=== PATIENT | male | born 1940 | race Caucasian/White ===

== ENCOUNTER 2019-03-12 10:14 | Observation (INO) | payer MEDICARE, OTHER ==
[~2019-03-12] VITALS: Ht 170.2 cm; Wt 71.6 kg
[2019-03-12] MEDS ORDERED: RANI1TAB38 PO (10:30)
[2019-03-12] MEDS ORDERED: SIMV10TA2 PO (10:30)
[2019-03-12] MEDS ORDERED: AMLO10TA PO (10:30)
[2019-03-12] MEDS ORDERED: PLAV1TAB2 PO (10:30)
[2019-03-12] MEDS ORDERED: ASPI81TA85 PO (10:30)
[2019-03-12] MEDS ORDERED: PROS5TAB PO (10:30)
[2019-03-12] MEDS ORDERED: METO200T28 PO (10:30)
[2019-03-12] MEDS ORDERED: VITAD1000T PO (10:30)
[2019-03-12] MEDS ORDERED: LISI40TA PO (10:30)
[2019-03-12 10:52] LABS: BASO % 0.5 % (0.0-1.0); EOS % 0.3 % (0.0-3.0); HEMATOCRIT 44.2 % (42.0-52.0); HEMOGLOBIN 15.4 g/dl (13.5-17.5); LYMPH # 0.7 10^3/uL (1.5-4.5); LYMPH % 9.3 % (24.0-44.0); MEAN CORPUSCULAR HGB CONC 34.8 g/dl (32.0-36.5); MEAN CORPUSCULAR VOLUME 91.9 fl (80.0-96.0); MONO # 0.9 10^3/uL (0.0-0.8); MONO % 11.1 % (0.0-5.0); NEUTROPHILS # 6.2 10^3/uL (1.8-7.7); PLATELET COUNT, AUTOMATED 184 10^3/uL (150-450); RED BLOOD COUNT 4.81 10^6/uL (4.30-6.10)
[2019-03-12 11:02] LABS: INR 1.11
[2019-03-12 11:03] LABS: PARTIAL THROMBOPLASTIN TIME 27.3 SECONDS (25.0-38.4)
[2019-03-12 11:27] LABS: ALBUMIN 4.2 GM/DL (3.2-5.2); ALT/SGPT 23 U/L (12-78); BILIRUBIN,DIRECT 0.2 MG/DL (0.0-0.2); BILIRUBIN,TOTAL 0.9 MG/DL (0.2-1.0); BLOOD UREA NITROGEN 18 MG/DL (7-18); CALCIUM LEVEL 8.9 MG/DL (8.8-10.2); CARBON DIOXIDE LEVEL 26 MEQ/L (21-32); CHLORIDE LEVEL 102 MEQ/L (98-107); CK-MB VALUE MASS 1.5 NG/ML (<3.6); CPK CREATINE PHOSPHOKINASE 123 U/L (39-308); CREATININE FOR GFR 1.06 MG/DL (0.70-1.30); FREE T4 1.38 NG/DL (0.76-1.46); GLOMERULAR FILTRATION RATE > 60.0 (>35); GLUCOSE, FASTING 165 MG/DL (70-100); MB/CK RELATIVE INDEX 1.22 (< OR =4); POTASSIUM SERUM 4.3 MEQ/L (3.5-5.1); SODIUM LEVEL 134 MEQ/L (136-145); TOTAL PROTEIN 7.2 GM/DL (6.4-8.2); TROPONIN I < 0.02 NG/ML (< 0.10)
--- NOTE | 2019-03-12 11:42 | REP ---
PA and lateral chest: There are no comparisons. The lung wilson are clear. The cardiac size is normal. The luis, mediastinum, and skeletal structures are unremarkable. Impression: Negative PA and lateral chest. Electronically Signed by Sylvester Shipman MD 03/12/2019 11:34 A
--- NOTE | 2019-03-12 12:01 | REP ---
CT of the brain without IV contrast: There are no comparisons. There is no hemorrhage, edema, mass effect or midline shift. The cortical stripe is unremarkable. The sulci are mildly enlarged compatible with mild diffuse volume loss. The visualized paranasal sinuses and mastoid air cells are clear. Impression: There is no hemorrhage, acute infarct or mass. Mild diffuse volume loss. Electronically Signed by Sylvester Shipman MD 03/12/2019 11:52 A
[2019-03-12] MEDS: NS 1,000 ML IV SCH ×2 (12:12→18:01)
[2019-03-12] MEDS ORDERED: REFR0.5D8 OU (12:55)
[2019-03-12] MEDS ORDERED: METO1TAB32 PO (12:55)
[2019-03-12] MEDS ORDERED: NITR0.1S SL (12:55)
[2019-03-12] MEDS ORDERED: AMLO5TAB6 PO (12:55)
[2019-03-12] MEDS ORDERED: ACETAMINOPHEN TAB 650MG DOSE (2X325MG) PO PRN (13:15)
[2019-03-12] MEDS ORDERED: MAALOX 30 ML SUSP *UDC PO PRN (13:15)
[2019-03-12] MEDS ORDERED: MOM 30ML SUSPENSION UDC PO PRN (13:15)
--- NOTE | 2019-03-12 13:49 | HPEPDOC ---
General Date of Admission Mar 12, 2019 at 13:04 Date of Service: Mar 12, 2019 Attending Physician: ZANE MINER MD Chief Complaint The patient is a 79-year-old male admitted with a reason for visit of Syncope. Source: Patient, Family Timing/Duration: 1/2-1 hour Severity: Other (N/A) Associated Symptoms: Other (aura) History of Present Illness 79 years old white male with past medical history of coronary artery disease status post coronary stent was in usual state of health. He was at his faith while trying to sit down from a standing position he had a normal followed by syncopal episode with loss of consciousness for 10-15 seconds. Patient was awake, alert and oriented 3 when he recovered. . No chest pain, no shortness of breath, no nausea, vomiting, no headache Home Medications Scheduled Amlodipine Besylate (Amlodipine Besylate) 5 Mg Tablet, 5 MG PO DAILY, (Reported) Aspirin (Aspir 81) 81 Mg Tablet.dr, 81 MG PO DAILY, (Reported) Clopidogrel Bisulfate (Plavix) 75 Mg Tablet, 75 MG PO DAILY, (Reported) Finasteride (Proscar) 5 Mg Tablet, 5 MG PO DAILY, (Reported) Lisinopril (Lisinopril) 40 Mg Tablet, 40 MG PO DAILY, (Reported) Metoprolol Succinate (Metoprolol Succinate) 25 Mg Tab.er.24h, 25 MG PO QHS, (Reported) Ranitidine Hcl (Ranitidine HCl) 150 Mg Tablet, 1 TAB PO BID, (Reported) Simvastatin (Simvastatin) 10 Mg Tablet, 10 MG PO QHS, (Reported) Vitamin D (Vitamin D3) 1,000 Unit Tablet, 1,000 UNIT PO DAILY, (Reported) Scheduled PRN Carboxymethylcellulose Sodium (Refresh Tears) 15 Ml Drops, 1 DROP OU QID PRN for DRY EYES, (Reported) Nitroglycerin (Nitroglycerin) 4.9 Gm [place], 0.4 MG SL for CHEST PAIN, (Reported) Allergies Coded Allergies: citalopram (Verified Adverse Reaction, Mild, nausea, 03/12/19) metformin (Verified Adverse Reaction, Mild, nausea, 03/12/19) Past Medical History Medical History CAD, hyperlipidemia, cataracts, hypertension Surgical History Bilateral cataract surgery, skin mole removal surgery Family History Significant Family History: No pertinent family hx Social History * Smoker: Denies Alcohol: Denies Drugs: denies A-FIB/CHADSVASC A-FIB History Current/History of A-Fib/PAF?: No Review of Systems Constitutional: Denies: Chills, Fever, Malaise, Night Sweats, Weakness, Fatigue, Weight Loss, Lethargy, Other Eyes: Denies: Pain, Vision change, Conjunctivae inflammation, Eyelid inflammation, Redness, Other ENT: Denies: Head Aches, Ear Pain, Dysphagia, Sinus Congestion, Post Nasal Drip, Sore Throat, Epistaxis, Other Symptoms Skin: Denies: Rash, Lesions, Jaundice, Bruising, Itching, Dry, Breakdown, Nail Changes, Other Pulmonary: Denies: Dyspnea, Cough, Pleuritic Chest Pain, Other Symptoms Cardiovascular: Denies: Chest Pain, Palpitations, Orthopnea, Paroxysmal Noc. Dyspnea, Edema, Lt Headedness, Other Symptoms Gastrointestinal: Denies: Nausea, Vomiting, Abdominal Pain, Diarrhea, Constipation, Melena, Hematochezia, Other Symptoms Genitourinary: Denies: Dysuria, Frequency, Incontinence, Hematuria, Retention, Other Symptoms Hematologic: Denies: Bruising, Bleeding Excessively, Petecchia, Purpura, Enlarged Lymph Nodes, Other Hematologic Endocrine: Denies: Polydipsia, Polyphagia, Polyuria, Heat Intolerance, Cold Intolerance, Other Endocrine Sx Musculoskeletal: Denies: Neck Pain, Back Pain, Shoulder Pain, Arm Pain, Hand Pain, Leg Pain, Foot Pain, Joint Pain, Muscle Pain, Spasms, Other Symptoms Neurological: Reports: Other Symptoms (syncope with loss of consciousness for 10-15 seconds) Psych: Denies: Mood Normal, Anxiety, Depression, Memory Issues, Thoughts of Self Harm, Anger, Thoughts of Harming Other, Other Psych Physical Examination General Exam: Positive: Alert Eye Exam: Positive: PERRLA, Conjunctiva & lids normal ENT Exam: Positive: Atraumatic Neck Exam: Positive: Supple Chest Exam: Positive: Clear to auscultation, Normal air movement Heart Exam: Positive: Rate Normal, Normal S1, Normal S2 Abdomen Exam: Positive: Normal bowel sounds, Soft Extremity Exam: Positive: Normal pulses Skin Exam: Positive: Nl turgor and temperature Neuro Exam: Positive: Normal Gait, Normal Speech, Cranial Nerves 3-12 NL Psych Exam: Positive: Mental status NL, Mood NL, Oriented x 3 Vital Signs Vital Signs Date Time Temp Pulse Resp B/P (MAP) Pulse Ox O2 Delivery O2 Flow Rate FiO2 03/12/19 12:45 85 16 164/79 (107) 97 03/12/19 10:29 97.7 Room Air Laboratory Data Labs 24H Laboratory Tests 2 03/12/19 10:44: Immature Granulocyte % (Auto) 0.8, White Blood Count 8.0, Red Blood Count 4.81, Hemoglobin 15.4, Hematocrit 44.2, Mean Corpuscular Volume 91.9, Mean Corpuscular Hemoglobin 32.0, Mean Corpuscular Hemoglobin Concent 34.8, Red Cell Distribution Width 13.1, Platelet Count 184, Neutrophils (%) (Auto) 78.0H, Lymphocytes (%) (Auto) 9.3L, Monocytes (%) (Auto) 11.1H, Eosinophils (%) (Auto) 0.3, Basophils (%) (Auto) 0.5, Neutrophils # (Auto) 6.2, Lymphocytes # (Auto) 0.7L, Monocytes # (Auto) 0.9H, Eosinophils # (Auto) 0.0, Basophils # (Auto) 0.0, Nucleated Red Blood Cells % (auto) 0.0, Prothrombin Time 14.0, Prothromb Time International Ratio 1.11, Activated Partial Thromboplast Time 27.3, Anion Gap 6L, Glomerular Filtration Rate > 60.0, Calcium Level 8.9, Aspartate Amino Transf (AST/SGOT) 19, Alanine Aminotransferase (ALT/SGPT) 23, Alkaline Phosphatase 86, Total Bilirubin 0.9, Direct Bilirubin 0.2, Total Creatine Kinase 123, Creatine Kinase MB 1.5, Creatine Kinase MB Relative Index 1.22, Troponin I < 0.02, Total Protein 7.2, Albumin 4.2, Albumin/Globulin Ratio 1.40, Thyroid Stimulating Hormone (TSH) 1.220, Free Thyroxine 1.38 CBC/BMP Laboratory Tests 03/12/19 10:44 Red Blood Count 4.81, Mean Corpuscular Volume 91.9, Mean Corpuscular Hemoglobin 32.0, Mean Corpuscular Hemoglobin Concent 34.8, Red Cell Distribution Width 13.1, Neutrophils (%) (Auto) 78.0 H, Lymphocytes (%) (Auto) 9.3 L, Monocytes (%) (Auto) 11.1 H, Eosinophils (%) (Auto) 0.3, Basophils (%) (Auto) 0.5, Neutrophils # (Auto) 6.2, Lymphocytes # (Auto) 0.7 L, Monocytes # (Auto) 0.9 H, Eosinophils # (Auto) 0.0, Basophils # (Auto) 0.0 Problems (1) Syncope Status: Acute Problem Text: Syncope most likely vasovagal in nature CT head is negative for any ischemia or hemorrhage All the level work is essentially within normal range including first troponin is negative Will request bilateral carotid Dopplers and echocardiogram for completion of workup Continue home medications including aspirin and Plavix DVT prophylaxis with heparin Diet 2 g sodium Activity as tolerated Possible discharge in a.m. once once the workup is complete Plan / VTE VTE Prophylaxis Ordered?: Yes ZANE MINER MD Mar 12, 2019 13:49
[2019-03-12 14:10] VITALS: BP 150/78
[2019-03-12 18:00] VITALS: BP 168/74
[2019-03-12] MEDS: HEPARIN SOD (PORCINE) 5000 UNITS/ML VIAL SC SCH (21:00)
[2019-03-12] MEDS ORDERED: METOPROLOL SUCC *XL* 25MG TAB (TopROL *XL*) PO SCH (21:00)
[2019-03-12] MEDS: DOCUSATE SODIUM 100 MG CAP PO SCH (21:00)
[2019-03-12] MEDS ORDERED: SIMVASTATIN 10 MG TAB PO SCH (21:00)
[2019-03-12] MEDS: FAMOTIDINE 20 MG TAB PO SCH (21:18)
[2019-03-12 22:00] VITALS: BP 160/76
[2019-03-13] MEDS: NS 1,000 ML IV SCH ×2 (00:53→07:22)
[2019-03-13 06:00] VITALS: BP 161/79
[2019-03-13 06:40] LABS: HEMATOCRIT 43.5 % (42.0-52.0); HEMOGLOBIN 14.8 g/dl (13.5-17.5); MEAN CORPUSCULAR HEMOGLOBIN 31.1 pg (27.0-33.0); MEAN CORPUSCULAR VOLUME 91.4 fl (80.0-96.0); PLATELET COUNT, AUTOMATED 191 10^3/uL (150-450); RED BLOOD COUNT 4.76 10^6/uL (4.30-6.10); WHITE BLOOD COUNT 7.2 10^3/uL (4.0-10.0)
--- NOTE | 2019-03-13 06:54 | ECGEPIP ---
[facility] - ED Test Date: 2019-03-12 Pat Name: JEN AIKEN Department: Room: [place] [address] Gender: Male Cloud Security Architect: alma : [id number] Requested By: LINDA Hurst Order Number: [id number] Reading MD: Mikey Mason Measurements Intervals [place] Rate: 70 P: 28 [place]: 202 QRS: 36 QRSD: 90 T: 73 QT: 389 QTc: 421 Interpretive Statements SINUS RHYTHM POOR R WAVE PROGRESSION NO PRIORS FOR COMPARISON Electronically Signed on 03-13-2019 6:54:50 EDT by Mikey Mason
[2019-03-13 07:10] LABS: ALBUMIN 3.6 GM/DL (3.2-5.2); ALT/SGPT 21 U/L (12-78); BILIRUBIN,TOTAL 0.8 MG/DL (0.2-1.0); BLOOD UREA NITROGEN 11 MG/DL (7-18); CALCIUM LEVEL 8.6 MG/DL (8.8-10.2); CARBON DIOXIDE LEVEL 25 MEQ/L (21-32); CHLORIDE LEVEL 107 MEQ/L (98-107); CREATININE FOR GFR 0.79 MG/DL (0.70-1.30); GLOMERULAR FILTRATION RATE > 60.0 (>35); GLUCOSE, FASTING 121 MG/DL (70-100); MAGNESIUM LEVEL 2.1 MG/DL (1.8-2.4); POTASSIUM SERUM 3.5 MEQ/L (3.5-5.1); SODIUM LEVEL 138 MEQ/L (136-145); TOTAL PROTEIN 6.8 GM/DL (6.4-8.2)
--- NOTE | 2019-03-13 07:18 | REP ---
Bilateral carotid artery duplex ultrasound: Peak flow velocity analysis: RIGHT LEFT ICA Peak flow velocity cm/sec 79.1 64.1 ICA Diastolic flow velocity cm/sec 15.0 16.2 ICA/CCA Ratio 0.8 0.7 ECA Peak flow velocity cm/sec 104.0 100.9 CCA Peak flow velocity cm/sec 97.6 96.8 There is minimal atheromatous plaque bilaterally. The peak flow velocities are normal bilaterally. The findings indicate less than 50% narrowing bilaterally. There is no significant stenosis on the right on the left. There is antegrade flow in the vertebral arteries bilaterally. Electronically Signed by Sylvester Shipman MD 03/13/2019 07:10 A
[2019-03-13] MEDS ORDERED: VITAMIN D 1,000 INTERNATIONAL UNITS TABLET PO SCH (09:00)
[2019-03-13] MEDS ORDERED: amLODIPine 5 MG TAB PO SCH (09:00)
[2019-03-13] MEDS ORDERED: ASPIRIN 81 MG ENTERIC TAB PO SCH (09:00)
[2019-03-13] MEDS ORDERED: CLOPIDOGREL 75 MG TAB PO SCH (09:00)
[2019-03-13] MEDS ORDERED: LISINOPRIL 40 MG TAB PO SCH (09:00)
[2019-03-13] MEDS ORDERED: FINASTERIDE 5 MG TAB PO SCH (09:00)
[2019-03-13] MEDS: HEPARIN SOD (PORCINE) 5000 UNITS/ML VIAL SC SCH (09:42)
[2019-03-13] MEDS: FAMOTIDINE 20 MG TAB PO SCH (09:42)
[2019-03-13 09:43] VITALS: BP 149/75
[2019-03-13] MEDS: DOCUSATE SODIUM 100 MG CAP PO SCH (09:43)
--- NOTE | 2019-03-13 11:51 | IPNPDOC ---
Subjective Date Seen The patient was seen on 03/13/19. Subjective Chief Complaint/HPI Patient with no other symptoms, no syncope, no dizziness General: Denies: ROS Unobtainable, Chills, Night Sweats, Fatigue, Malaise, Normal Appetite, Other Symptoms Constitutional: Denies: Chills, Fever, Malaise, Night Sweats, Weakness, Fatigue, Weight Loss, Lethargy, Other Eyes: Denies: Pain, Vision change, Conjunctivae inflammation, Eyelid inflammation, Redness, Other ENT: Denies: Head Aches, Ear Pain, Dysphagia, Sinus Congestion, Post Nasal Drip, Sore Throat, Epistaxis, Other Symptoms Skin: Denies: Rash, Lesions, Jaundice, Bruising, Itching, Dry, Breakdown, Nail Changes, Other Pulmonary: Denies: Dyspnea, Cough, Pleuritic Chest Pain, Other Symptoms Cardiovascular: Denies: Chest Pain, Palpitations, Orthopnea, Paroxysmal Noc. Dyspnea, Edema, Lt Headedness, Other Symptoms Gastrointestinal: Denies: Nausea, Vomiting, Abdominal Pain, Diarrhea, Constipation, Melena, Hematochezia, Other Symptoms Musculoskeletal: Denies: Neck Pain, Back Pain, Shoulder Pain, Arm Pain, Hand Pain, Leg Pain, Foot Pain, Joint Pain, Muscle Pain, Spasms, Other Symptoms Neurological: Denies: Weakness, Numbness, Incoordination, Change in speech, Confusion, Seizures, Other Symptoms Psych: Denies: Mood Normal, Anxiety, Depression, Memory Issues, Thoughts of Self Harm, Anger, Thoughts of Harming Other, Other Psych Objective Physical Examination General Exam: Positive: Alert Eye Exam: Positive: PERRLA, Conjunctiva & lids normal ENT Exam: Positive: Atraumatic Neck Exam: Positive: Supple Chest Exam: Positive: Clear to auscultation, Normal air movement Heart Exam: Positive: Rate Normal, Normal S1, Normal S2 Abdomen Exam: Positive: Normal bowel sounds, Soft Extremity Exam: Positive: Normal pulses Skin Exam: Positive: Nl turgor and temperature Neuro Exam: Positive: Normal Gait, Normal Speech, Cranial Nerves 3-12 NL Psych Exam: Positive: Mental status NL, Mood NL, Oriented x 3 Assessment /Plan Problems (1) Syncope Status: Acute Problem Text: Syncope most likely vasovagal in nature CT head is negative for any ischemia or hemorrhage All workup including 3 troponins are negative Continue home medications including aspirin and Plavix DVT prophylaxis with heparin Diet 2 g sodium Activity as tolerated Carotid Dopplers do not show any obstruction Echocardiogram is pending DC patient. If echo is normal Plan/VTE VTE Prophylaxis Ordered?: Yes VS, I&O, 24H, Fishbone Vital Signs/I&O Vital Signs Date Time Temp Pulse Resp B/P (MAP) Pulse Ox O2 Delivery O2 Flow Rate FiO2 03/13/19 09:43 87 149/75 03/13/19 06:00 98.4 18 94 03/12/19 10:29 Room Air I&O- Last 24 Hours up to 6 AM 03/13/19 06:00 Intake Total 1950 ml Output Total 500 ml Balance 1450 ml Laboratory Data 24H LABS Laboratory Tests 2 03/12/19 18:24: Troponin I < 0.02 03/12/19 22:39: Troponin I < 0.02 03/13/19 05:38: Nucleated Red Blood Cells % (auto) 0.0, Anion Gap 6L, Glomerular Filtration Rate > 60.0, Blood Urea Nitrogen 11, Creatinine 0.79, Sodium Level 138, Potassium Level 3.5, Chloride Level 107, Carbon Dioxide Level 25, Calcium Level 8.6L, Aspartate Amino Transf (AST/SGOT) 16, Alanine Aminotransferase (ALT/SGPT) 21, Alkaline Phosphatase 83, Total Bilirubin 0.8, Total Protein 6.8, Albumin 3.6, Magnesium Level 2.1, Albumin/Globulin Ratio 1.13 CBC/BMP Laboratory Tests 03/13/19 05:38 Red Blood Count 4.76, Mean Corpuscular Volume 91.4, Mean Corpuscular Hemoglobin 31.1, Mean Corpuscular Hemoglobin Concent 34.0, Red Cell Distribution Width 13.0, Calcium Level 8.6 L, Aspartate Amino Transf (AST/SGOT) 16, Alanine Aminotransferase (ALT/SGPT) 21, Alkaline Phosphatase 83, Total Bilirubin 0.8, Total Protein 6.8, Albumin 3.6 ZANE MINER MD Mar 13, 2019 11:51
[2019-03-13 14:00] VITALS: BP 152/54
--- NOTE | 2019-03-13 16:27 | DS.PDOC ---
Discharge Summary General Date of Admission Mar 12, 2019 at 13:04 Date of Discharge 03/13/2019 Attending Physician: ZANE MINER MD Discharge Summary PROCEDURES PERFORMED DURING STAY: None. ADMITTING DIAGNOSES: 1. Syncope. DISCHARGE DIAGNOSES: 1. Vasovagal syncope. COMPLICATIONS/CHIEF COMPLAINT: Syncope. HISTORY OF PRESENT ILLNESS: 79 years old white male with past medical history of coronary artery disease status post coronary stent was in usual state of health. He was at his adventism while trying to sit down from a standing position he had a normal followed by syncopal episode with loss of consciousness for 10-15 seconds. Patient was awake, alert and oriented 3 when he recovered. . No chest pain, no shortness of breath, no nausea, vomiting, no headache. HOSPITAL COURSE: Patient was admitted for observation, patient's troponins 3 were negative, did not show any arrhythmias on the chief i dispatcher. CT of the head was essentially negative. Bilateral carotid Dopplers did not show any obstruction or lesions. More than 50%. Patient is a co-is also been done but report is pending. Patient does not wish to wait. He'll be discharged home as he is asymptomatic and he can call me tomorrow for his echocardiogram report.. DISCHARGE MEDICATIONS: Please see below. ALLERGIES: Please see below. PHYSICAL EXAMINATION ON DISCHARGE: VITAL SIGNS: Please see below. GENERAL: Within normal limits HEENT: PERRLA NECK: Supple CARDIOVASCULAR EXAMINATION:. S1, S2, regular, no murmur or thrill RESPIRATORY EXAMINATION: Clear to A&P ABDOMINAL EXAMINATION:. Soft, nontender, bowel sounds present EXTREMITIES:. No clubbing, cyanosis, edema SKIN: Within normal limits NEUROLOGICAL EXAMINATION: Within normal limits PSYCHIATRIC EXAMINATION: Normal LABORATORY DATA: Please see below. IMAGING: Bilateral carotid artery duplex ultrasound: Peak flow velocity analysis: RIGHT LEFT ICA Peak flow velocity cm/sec 79.1 64.1 ICA Diastolic flow velocity cm/sec 15.0 16.2 ICA/CCA Ratio 0.8 0.7 ECA Peak flow velocity cm/sec 104.0 100.9 CCA Peak flow velocity cm/sec 97.6 96.8 There is minimal atheromatous plaque bilaterally. The peak flow velocities are normal bilaterally. The findings indicate less than 50% narrowing bilaterally. There is no significant stenosis on the right on the left. There is antegrade flow in the vertebral arteries bilaterally. PROGNOSIS: Good ACTIVITY: As tolerated. DIET: Regular DISCHARGE PLAN: Follow with PCP in one week DISPOSITION: . Home DISCHARGE INSTRUCTIONS: 1. Follow-up with PCP in one week and call me in a.m. for the echocardiogram report. ITEMS TO FOLLOWUP ON ON OUTPATIENT: 1. Echocardiogram report. DISCHARGE CONDITION: Stable. TIME SPENT ON DISCHARGE: 35 minutes. Vital Signs/I&Os Vital Signs Date Time Temp Pulse Resp B/P (MAP) Pulse Ox O2 Delivery O2 Flow Rate FiO2 03/13/19 14:00 98.6 86 19 152/54 (86) 95 03/12/19 10:29 Room Air I&O- Last 24 Hours up to 6 AM 03/13/19 06:00 Intake Total 1950 ml Output Total 500 ml Balance 1450 ml Laboratory Data Labs 24H Laboratory Tests 2 03/12/19 18:24: Troponin I < 0.02 03/12/19 22:39: Troponin I < 0.02 03/13/19 05:38: Nucleated Red Blood Cells % (auto) 0.0, Anion Gap 6L, Glomerular Filtration Rate > 60.0, Blood Urea Nitrogen 11, Creatinine 0.79, Sodium Level 138, Potassium Level 3.5, Chloride Level 107, Carbon Dioxide Level 25, Calcium Level 8.6L, Aspartate Amino Transf (AST/SGOT) 16, Alanine Aminotransferase (ALT/SGPT) 21, Alkaline Phosphatase 83, Total Bilirubin 0.8, Total Protein 6.8, Albumin 3.6, Magnesium Level 2.1, Albumin/Globulin Ratio 1.13 CBC/BMP Laboratory Tests 03/13/19 05:38 Red Blood Count 4.76, Mean Corpuscular Volume 91.4, Mean Corpuscular Hemoglobin 31.1, Mean Corpuscular Hemoglobin Concent 34.0, Red Cell Distribution Width 13.0, Calcium Level 8.6 L, Aspartate Amino Transf (AST/SGOT) 16, Alanine Aminotransferase (ALT/SGPT) 21, Alkaline Phosphatase 83, Total Bilirubin 0.8, Total Protein 6.8, Albumin 3.6 Discharge Medications Scheduled Amlodipine Besylate (Amlodipine Besylate) 5 Mg Tablet, 5 MG PO DAILY, (Reported) Aspirin (Aspir 81) 81 Mg Tablet.dr, 81 MG PO DAILY, (Reported) Clopidogrel Bisulfate (Plavix) 75 Mg Tablet, 75 MG PO DAILY, (Reported) Finasteride (Proscar) 5 Mg Tablet, 5 MG PO DAILY, (Reported) Lisinopril (Lisinopril) 40 Mg Tablet, 40 MG PO DAILY, (Reported) Metoprolol Succinate (Metoprolol Succinate) 25 Mg Tab.er.24h, 25 MG PO QHS, (Reported) Ranitidine Hcl (Ranitidine HCl) 150 Mg Tablet, 1 TAB PO BID, (Reported) Simvastatin (Simvastatin) 10 Mg Tablet, 10 MG PO QHS, (Reported) Vitamin D (Vitamin D3) 1,000 Unit Tablet, 1,000 UNIT PO DAILY, (Reported) Scheduled PRN Carboxymethylcellulose Sodium (Refresh Tears) 15 Ml Drops, 1 DROP OU QID PRN for DRY EYES, (Reported) Nitroglycerin (Nitroglycerin) 4.9 Gm [place], 0.4 MG SL for CHEST PAIN, (Reported) Allergies Coded Allergies: citalopram (Verified Adverse Reaction, Mild, nausea, 03/12/19) metformin (Verified Adverse Reaction, Mild, nausea, 03/12/19) ZANE MINER MD Mar 13, 2019 16:27
--- NOTE | 2019-03-13 21:30 | ECHO ---
DATE OF PROCEDURE: 03/13/2019 REFERRING PHYSICIAN: Dr. Eriberto Harrison INDICATION: Syncope. HEIGHT: 170 cm WEIGHT: 71 kg 2D MEASUREMENTS: Ventricular septum: 0.84 cm Posterior wall: 0.93 cm Left ventricle diastole: 4.9 cm Aortic root: 3.2 cm Left atrium: 3.7 cm Aortic annulus: 2.0 cm Left atrial volume index: 26 Inferior vena cava: 1.4 cm with normal respiratory variation. Central venous pressure estimated to be 5-10 mmHg. DOPPLER MEASUREMENTS: No aortic stenosis. Very mild aortic regurgitation. Aortic valve velocity: 134 cm/s LVOT velocity: 95.5 cm/s LVOT VTI: 20.5 cm Very mild mitral regurgitation. Mitral E velocity: 60.7 cm/s Mitral A velocity: 123 cm/s Mitral deceleration time: 229 ms Mild tricuspid regurgitation. No pulmonic regurgitation. MITRAL ANNULAR TISSUE DOPPLER: E prime lateral: 7.2 cm/s E prime septal: 7.2 cm/s DESCRIPTION: Rhythm was sinus. Image quality was fair. This was a 2D, M-mode, color flow Doppler and pulse wave Doppler examination and included mitral annular tissue Doppler. CONCLUSIONS: 1. Normal left ventricle internal dimensions and wall thickness. Normal regional left ventricular (LV) wall motion and wall thickening. Normal LV systolic function. Left ventricular ejection fraction (LVEF) 65% by visual estimate. Grade 1 LV diastolic dysfunction (impaired relaxation filling pattern). 2. 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 No aortic stenosis. Very mild aortic regurgitation. 3. Mild mitral annular calcification. Very mild mitral regurgitation. 4. Normal right ventricle size and systolic function. Normal CVP (5-10 mmHg). 5. No pericardial effusion.
== END 2019-03-13 17:54 | disposition home or self-care (01) ==
LOC: EDBD 10:14 → M ED 10:14 → M ED INP 13:04 → M MSPAV 14:35
PROVIDERS: ADMIT Internal Medicine; ATTEND Internal Medicine
DX: R55 Syncope and collapse (principal); I10 Essential (primary) hypertension; I25.10 Atherosclerotic heart disease of native coronary artery without angina pectoris; Z98.61 Coronary angioplasty status; E78.49 Other hyperlipidemia; Z79.82 Long term (current) use of aspirin; Z79.899 Other long term (current) drug therapy; Z88.8 Allergy status to other drugs, medicaments and biological substances
CPT/HCPCS: 36415; 70450; 71046; 80048; 80053; 80076; 82550; 82553; 83735; 84439; 84443; 84484; 85025; 85027; 85610; 85730; 93005; 93041; 93306; 93880; 94760; 96360; 96361; 96372; 99285; G0378